=== PATIENT | male | born 1950 | race Caucasian/White ===

== ENCOUNTER 2017-09-04 14:46 | Emergency (ER) | payer OTHER ==
[~2017-09-04] VITALS: Ht 175.3 cm; Wt 96.0 kg
[~2017-09-04 14:46] MED LIST: CYCL10TA6 PO; GLC/500 PO; LPT/40 PO; MELO-84 PO; METH4PAK PO; METR0.754 TOP; MULT-220 PO; POLYSOL4 OPB; TRAM-453 PO; ZYBKIT PO
[2017-09-04 14:50] VITALS: TEMP 36.7; Ht 175.3 cm; Wt 96.0 kg
[2017-09-04] MEDS ORDERED: ASPI81TA28 PO (15:05)
[2017-09-04] MEDS ORDERED: SIMV40TA2 PO (15:05)
[2017-09-04] MEDS ORDERED: SODIUM CHLORIDE 0.9% 1000ML 1,000 ML IV STA (15:46)
[2017-09-04 16:05] LABS: BASO % 0.4 %; BASO ABS # 0.02 K/uL (0-0.2); EOS % 1.8 %; HEMATOCRIT 39.3 % (42-52); HEMOGLOBIN 13.8 g/dL (14.0-18.0); IG# 0.01 K/uL (0.00-0.02); LYMPH % 24.1 %; LYMPH ABS # 1.35 K/uL (1.2-3.4); MEAN CELL VOLUME 90.8 fL (80-100); MEAN CORPUSCULAR HEMOGLOBIN 31.9 pg (25-34); MEAN CORPUSCULAR HGB CONC 35.1 g/dl (32-36); MEAN PLATELET VOLUME 10.3 fL (7.4-10.4); MONO ABS # 0.39 K/uL (0.11-0.59); NEUT % 66.5 %; NEUT ABS # 3.73 K/uL (1.4-6.5); PLATELET COUNT 206 K/uL (130-400); RED CELL DISTRIBUTION WIDTH CV 12.6 % (11.5-14.5)
[2017-09-04 16:13] LABS: ALBUMIN 3.7 gm/dl (3.4-5.0); CALCIUM 8.8 mg/dl (8.5-10.1); CREATININE 0.68 mg/dl (0.60-1.40); POTASSIUM 3.9 mmol/L (3.5-5.1)
[2017-09-04 16:16] LABS: TOTAL PROTEIN 7.3 gm/dl (6.4-8.2)
--- NOTE | 2017-09-04 17:15 | DIAGNOSTIC IMAGING REPORT ---
ABD/PELVIS WITHOUT FOR STONE HISTORY: 66 years-old Male EVALUATE FLANK PAIN/HEMATURIA acute bilateral flank pain with hematuria COMPARISON: CT abdomen and pelvis 12/25/2014 TECHNIQUE: Multiple axial CT images of the abdomen and pelvis were obtained without the use of IV contrast. A dose lowering technique was used consistent with the principals of FRANCIA. FINDINGS: Mild dependent subsegmental bibasilar atelectasis. No pneumatosis or pneumoperitoneum identified. The imaged inferior cardiac chambers are unremarkable. Gallbladder is mildly contracted. Hepatic steatosis. 5 mm low attenuating lesion of the left hepatic lobe is unchanged and too small to characterize however suggests benign etiology such as a hepatic cyst. The spleen, pancreas and adrenal glands are within normal limits. Kidneys and ureters are within normal limits. No nephrolithiasis, ureteral calculi or obstructive uropathy identified. Mild distention of the bladder. Prostate is mildly prominent in size with central coarse parenchymal calcifications. Moderate atherosclerosis of the aorta without aneurysm. Mild dilation of the bilateral common iliac arteries measuring up to 1.8 cm transversely. There is no pathologic adenopathy identified. No bowel obstruction or focal bowel wall thickening identified. Cecum is again noted in a somewhat medial location. No evidence of acute appendicitis. Moderate stool volume of the right hemicolon. No mesenteric inflammatory changes or ascites. Soft tissues are within normal limits. Severe facet arthrosis of the mid and lower lumbar spine. Prominent subcortical cystic changes about the right acetabulum. IMPRESSION: 1. No acute intra-abdominal or intrapelvic abnormality identified, specifically no renal calculi or obstructive uropathy. 2. Hepatic steatosis. 3. Mild urinary bladder distention with prostamegaly. 4. No bowel obstruction or focal bowel wall thickening. The above report was generated using voice recognition software. It may contain grammatical, syntax or spelling errors. Electronically signed by: Zeb Dai M.D. 09/04/2017 5:13 PM Dictated Date/Time: 09/04/2017 5:06 PM
[2017-09-04 18:10] VITALS: BP 152/91; PULSE 66; O2SAT 97
--- NOTE | 2017-09-04 18:30 | EMERGENCY ROOM VISIT NOTE ---
ED Visit Note First contact with patient: 15:01 I reviewed the patient's past medical history, medications, and visit nursing notes. I discussed the case with the physician review assistant, examined the patient, and agree with the findings and plan as documented in the physician assistants note.
--- NOTE | 2017-09-05 21:48 | EMERGENCY ROOM VISIT NOTE ---
ED Visit Note First contact with patient: 15:01 Chief Complaint: Right sided back pain. History of Present Illness: Mr. Santana is a 66-year-old white male who ambulates into the ED accompanied by his complaining of right lower back pain. Historically patient denies any significant gastrointestinal. 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 Patient reports approximately 4-5 hours ago he started develop an achy sensation in the right side of the thoracic back. He reports initially it was mild and then gradually increased in intensity and became sharp. His pain has been as coming in waves. He places his discomfort in the area of the right flank with radiation into the right upper quadrant. He rates his discomfort 10/ 10 in triage but since coming back to the ED he is pain free. He has not identified any aggravating or alleviating factors related to the pain. He has not taken any medication for pain prior to arrival at the hospital. Proceed with his pain he reports he has been nauseated and has had some dry heaving but no jarrett vomiting, but has been brought back to the emergency department he has had resolution of nausea and heaving. He denies fevers, chills, sweats, skin eruptions, skin color changes, upper respiratory tract symptoms, cough, wheezing, shortness of breath, chest pain, urinary symptoms, hematuria, genital paresthesias, bowel and bladder dysfunction , lower extremity weakness/numbness/tingling. Review of Systems: As noted above in history of present illness. All body systems were reviewed and found to be negative as noted above. Past Medical History: Diabetes, unspecified skin disorder, osteoarthritis. Current Medications: Glucophage, Zyban, aspirin, Zocor. Allergies to Medications: Patient denies. Social History: Patient is not employed; he lives with his and feels safe in his home environment; he admits to tobacco and alcohol use. Physical Examination: Vital Signs: Date Time Temp Pulse Resp B/P (MAP) Pulse Ox O2 Delivery O2 Flow Rate FiO2 09/04/17 18:10 66 18 152/91 97 09/04/17 17:18 67 21 148/90 97 Room Air 09/04/17 16:00 67 16 144/81 95 Room Air 09/04/17 15:31 133/90 09/04/17 15:16 70 22 95 Room Air 09/04/17 15:11 72 09/04/17 15:01 135/91 09/04/17 14:50 36.7 74 20 157/82 95 Room Air GENERAL: 66-year-old male in mild to moderate distress due to pain, nontoxic- appearing, afebrile and hemodynamically stable. NEUROLOGICAL: Awake, alert and oriented to person, place and time. Answering questions appropriately and following commands. Normal gait. Good hand eye coordination. SKIN: Warm, dry and pink. No soft tissue eruptions or trauma noted. HEENT: Atraumatic and normocephalic. BACK: No tenderness over the bony thoracic or lumbar spine. No tenderness throughout the paraspinous muscles. Mild right-sided CVA tenderness. THORAX: Lungs sounds are clear to auscultation and equal bilaterally with symmetrical chest wall. ABDOMEN: Soft with mild tenderness in the right upper quadrant. Positive bowel sounds in all quadrants. No guarding, rigidity or organomegaly. EXTREMITIES: Moves all extremities well on command and with purpose. All distal neurovascular statuses are intact and equal bilaterally. No calf tenderness or cords. ED Course: Patient is assessed as noted above. Patient's medication list was reviewed. Laboratory Testing: Test 09/04/17 14:57 09/04/17 17:54 Range/Units White Blood Count 5.60 4.8-10.8 K/uL Red Blood Count 4.33 4.7-6.1 M/uL Hemoglobin 13.8 14.0-18.0 g/dL Hematocrit 39.3 42-52 % Mean Corpuscular Volume 90.8 80-100 fL Mean Corpuscular Hemoglobin 31.9 25-34 pg Mean Corpuscular Hemoglobin Concent 35.1 32-36 g/dl Platelet Count 206 130-400 K/uL Mean Platelet Volume 10.3 7.4-10.4 fL Neutrophils (%) (Auto) 66.5 % Lymphocytes (%) (Auto) 24.1 % Monocytes (%) (Auto) 7.0 % Eosinophils (%) (Auto) 1.8 % Basophils (%) (Auto) 0.4 % Neutrophils # (Auto) 3.73 1.4-6.5 K/uL Lymphocytes # (Auto) 1.35 1.2-3.4 K/uL Monocytes # (Auto) 0.39 0.11-0.59 K/uL Eosinophils # (Auto) 0.10 0-0.5 K/uL Basophils # (Auto) 0.02 0-0.2 K/uL RDW Standard Deviation 42.0 36.4-46.3 fL RDW Coefficient of Variation 12.6 11.5-14.5 % Immature Granulocyte % (Auto) 0.2 % Immature Granulocyte # (Auto) 0.01 0.00-0.02 K/uL Sodium Level 137 136-145 mmol/L Potassium Level 3.9 3.5-5.1 mmol/L Chloride Level 107 98-107 mmol/L Carbon Dioxide Level 23 21-32 mmol/L Anion Gap 7.0 3-11 mmol/L Blood Urea Nitrogen 16 7-18 mg/dl Creatinine 0.68 0.60-1.40 mg/dl Est Creatinine Clear Calc Drug Dose 120.5 ml/min Estimated GFR () 114.5 Estimated GFR (Non- 98.8 BUN/Creatinine Ratio 23.6 10-20 Random Glucose 124 70-99 mg/dl Calcium Level 8.8 8.5-10.1 mg/dl Total Bilirubin 0.4 0.2-1 mg/dl Direct Bilirubin 0.1 0-0.2 mg/dl Aspartate Amino Transf (AST/SGOT) 22 15-37 U/L Alanine Aminotransferase (ALT/SGPT) 30 12-78 U/L Alkaline Phosphatase 92 45-117 U/L Total Protein 7.3 6.4-8.2 gm/dl Albumin 3.7 3.4-5.0 gm/dl Lipase 109 73-393 U/L Urine Color YELLOW Urine Appearance CLEAR CLEAR Urine pH 5.5 4.5-7.5 Urine Specific [place] 1.023 1.000-1.030 Urine Protein NEG NEG Urine Glucose (UA) NEG NEG Urine Ketones NEG NEG Urine Occult Blood TRACE NEG Urine Nitrite NEG NEG Urine Bilirubin NEG NEG Urine Urobilinogen NEG NEG Urine Leukocyte Esterase NEG NEG Urine WBC (Auto) 0 0-5 /hpf Urine RBC (Auto) 0-4 0-4 /hpf Urine Hyaline Casts (Auto) 0 0-5 /lpf Urine Epithelial Cells (Auto) 0-5 0-5 /lpf Urine Bacteria (Auto) NEG NEG Noncontrast Abdominal/Pelvic CT: Was reviewed by myself and read by the radiologist showing no acute intra-abdominal or intrapelvic abnormalities, no renal calculi or obstructive uropathy, hepatic steatosis, mild urinary bladder distention with prostrate prostatomegaly, no bowel obstruction or focal bowel wall thickening. Patient was hydrated with normal saline. He refused pain and antinausea medications. Patient was reassessed multiple times during his stay in the emergency department and he had no return of pain or nausea. Patient's case was reviewed with Dr. Gross; he independently assessed the patient we agreed on diagnostic approach, treatment, disposition and plan. Clinical Impression: Acute right flank pain. Decision-Making: Initially my differential diagnosis I considered ureter calculus, pyelonephritis, acute cholecystitis, pancreatitis, hepatitis, constipation, bowel obstruction, testicular torsion and other causes. Disposition: Patient discharged home in stable condition accompanied by his ; prior to departure he was reassessed and subjectively reported he was still pain and symptom-free. Plan: Patient was encouraged to continue his current prescribed medications. Patient was encouraged alternate ibuprofen and acetaminophen every 3 hours as needed for pain. Patient was encouraged to stay well-hydrated with increased clear fluids. Patient was encouraged to follow-up with his primary care provider for recheck in 2-4 days. Patient was encouraged to return the ED for worsening pain, bloody urine, fevers , vomiting or any new/concerning symptoms.
== END 2017-09-04 18:10 | disposition home or self-care (01) ==
LOC: EDBD 14:46 → C.EDC 14:47
DX: R10.9 Unspecified abdominal pain (principal); E11.9 Type 2 diabetes mellitus without complications; M19.90 Unspecified osteoarthritis, unspecified site; Z79.899 Other long term (current) drug therapy; Z79.82 Long term (current) use of aspirin; Z72.0 Tobacco use

== ENCOUNTER 2017-09-29 12:36 | Emergency (ER) | payer OTHER ==
[~2017-09-29] VITALS: Ht 175.3 cm; Wt 92.0 kg
[2017-09-29] MEDS ORDERED: GLC/500 PO (12:38)
[2017-09-29] MEDS ORDERED: ZYBKIT PO (12:38)
[2017-09-29 12:40] VITALS: TEMP 36.7; Ht 175.3 cm; Wt 92.0 kg
[2017-09-29] MEDS ORDERED: KETOROLAC TROMETHAMINE 30 MG/ML VIAL IV STA (13:25)
[2017-09-29 13:38] LABS: BASO % 0.4 %; BASO ABS # 0.02 K/uL (0-0.2); EOS % 2.9 %; EOS ABS # 0.14 K/uL (0-0.5); HEMATOCRIT 41.3 % (42-52); HEMOGLOBIN 14.3 g/dL (14.0-18.0); IG# 0.01 K/uL (0.00-0.02); LYMPH % 29.9 %; LYMPH ABS # 1.42 K/uL (1.2-3.4); MEAN CELL VOLUME 90.4 fL (80-100); MEAN CORPUSCULAR HEMOGLOBIN 31.3 pg (25-34); MEAN CORPUSCULAR HGB CONC 34.6 g/dl (32-36); MEAN PLATELET VOLUME 9.5 fL (7.4-10.4); MONO % 7.4 %; MONO ABS # 0.35 K/uL (0.11-0.59); NEUT % 59.2 %; NEUT ABS # 2.81 K/uL (1.4-6.5); PLATELET COUNT 197 K/uL (130-400); RED CELL DISTRIBUTION WIDTH CV 12.6 % (11.5-14.5); RED CELL DISTRIBUTION WIDTH SD 41.5 fL (36.4-46.3); WHITE BLOOD COUNT 4.75 K/uL (4.8-10.8)
[2017-09-29 13:46] LABS: ALBUMIN 3.9 gm/dl (3.4-5.0); CALCIUM 8.8 mg/dl (8.5-10.1); CREATININE 0.61 mg/dl (0.60-1.40); POTASSIUM 3.9 mmol/L (3.5-5.1)
[2017-09-29 13:49] LABS: TOTAL PROTEIN 7.1 gm/dl (6.4-8.2)
[2017-09-29] MEDS ORDERED: SIMV40TA2 PO (15:05)
[2017-09-29] MEDS ORDERED: ASPI81TA28 PO (15:05)
--- NOTE | 2017-09-29 15:08 | DIAGNOSTIC IMAGING REPORT ---
MRI LUMBAR SPINE W/O CONTRAST CLINICAL HISTORY: Severe low back pain. TECHNIQUE: Sagittal and axial T1, T2 and STIR images were obtained. COMPARISON STUDY: No previous studies for comparison. OBSERVATIONS: The vertebral bodies and posterior elements appear intact. There is no abnormal bony signal present to suggest a marrow replacement process. L1-2: There is a small right foraminal disc protrusion with mild subforaminal narrowing. There is no significant spinal stenosis L2-3: There is a mild circumferential disc bulge. There is a right foraminal disc osteophyte complex with minimal subforaminal narrowing L3-4: There is a circumferential disc bulge with minimal spinal canal narrowing. There is facet joint arthropathy. There is no significant foraminal narrowing L4-5: There is a minor asymmetric to right disc bulge. There is no significant spinal or foraminal stenosis L5-S1: No disc protrusions or extrusions. No evidence of spinal canal or neural foraminal compromise. The conus medullaris and cauda equina appear normal. IMPRESSION: 1. Mild multilevel spondylitic changes. There is a small right foraminal disc protrusion at the L1-2 level. There is a small right foraminal disc osteophyte complex at the L2-3 level with mild subforaminal narrowing. There is a circumferential disc bulge with mild spinal canal narrowing at the L3-4 level. Electronically signed by: Kavon Simms M.D. 09/29/2017 3:06 PM Dictated Date/Time: 09/29/2017 3:00 PM
--- NOTE | 2017-09-29 16:18 | EMERGENCY ROOM VISIT NOTE ---
History Report prepared by Deisi: Carlos Garcia Under the Supervision of: Dr. Jose Elias Wesley M.D. First contact with patient: 13:19 Chief Complaint: FLANK PAIN Stated Complaint: BACK PAIN RADIATING TO LOWER ABDOMEN History of Present Illness The patient is a 66 year old male who presents to the Emergency Room with complaints of worsening right flank pain beginning last night. His pain wraps around into his abdomen. The patient rates his pain as a 4/10 in severity. He also complains of decreased urinary output and nausea. The patient denies numbness, weakness, vomiting or fevers. He notes that he was seen in the ED two weeks ago for similar symptoms and had a negative CT. His pain is not as severe as it was at his previous visit. Source of History: patient Onset: Last night Position: other (right flank) Symptom Intensity: 4/10 Timing: worsening Associated Symptoms: + nausea, + abdominal pain, + urinary symptoms ( decreased output), No fevers, No vomiting, No weakness, No numbness Review of Systems See HPI for pertinent positives & negatives. A total of 10 systems reviewed and were otherwise negative. Past Medical & Surgical Medical Problems: (1) Herniated disc Old medical records were reviewed. Nurse's notes were reviewed and I agree with. Family History No significant family history Social History Smoking Status: Current Every Day Smoker Marital Status: Housing Status: lives with family Current/Historical Medications Scheduled Aspirin (Aspirin Ec), 81 MG PO DAILY Bupropion Hcl (Smoking [place] (Zyban), 150 MG PO DAILY Metformin Hcl (Glucophage), 500 MG PO BIDM Simvastatin (Zocor), 40 MG PO QPM Allergies Coded Allergies: No Known Allergies (Unverified , 12/25/14) Physical Exam Vital Signs Date Time Temp Pulse Resp B/P (MAP) Pulse Ox O2 Delivery O2 Flow Rate FiO2 09/29/17 14:07 62 16 141/88 96 Room Air 09/29/17 12:40 36.7 70 16 165/102 94 Room Air Physical Exam General: Non-ill appearing middle-aged male in no acute distress. HEENT: Normal cephalic atraumatic. Pupils are equal round and reactive to light. Extraocular movements are intact. Oropharynx is pink with moist mucous membranes. No swelling of the mouth lips or tongue. Neck: Supple with a midline trachea. No meningeal signs or stiffness, no JVD or bruits. No Stridor. Chest: Clear to auscultation bilaterally. No wheezes or rhonchi. No increased work of breathing. Heart: regular rate and rhythm. Abdomen: Soft nontender, nondistended without rebound guarding or rigidity. Extremities: No cyanosis clubbing or edema. No calf tenderness or assymetry Spine/Back. Non tender to palpation. Right flank is mildly tender to palpation and exacerbated with any movements. Skin: Good turgor without rashes. Neurologic exam: Cranial nerves two through 12 are intact. Motor and sensation are intact and symmetrical throughout. Medical Decision & Procedures ER Provider Diagnostic Interpretation: Radiology results as stated below per my review and radiologist interpretation: MRI LUMBAR SPINE W/O CONTRAST OBSERVATIONS: The vertebral bodies and posterior elements appear intact. There is no abnormal bony signal present to suggest a marrow replacement process. L1-2: There is a small right foraminal disc protrusion with mild subforaminal narrowing. There is no significant spinal stenosis L2-3: There is a mild circumferential disc bulge. There is a right foraminal disc osteophyte complex with minimal subforaminal narrowing L3-4: There is a circumferential disc bulge with minimal spinal canal narrowing. There is facet joint arthropathy. There is no significant foraminal narrowing L4-5: There is a minor asymmetric to right disc bulge. There is no significant spinal or foraminal stenosis L5-S1: No disc protrusions or extrusions. No evidence of spinal canal or neural foraminal compromise. The conus medullaris and cauda equina appear normal. IMPRESSION: 1. Mild multilevel spondylitic changes. There is a small right foraminal disc protrusion at the L1-2 level. There is a small right foraminal disc osteophyte complex at the L2-3 level with mild subforaminal narrowing. There is a circumferential disc bulge with mild spinal canal narrowing at the L3-4 level. Electronically signed by: Kavon Simms M.D. 09/29/2017 3:06 PM Laboratory Results 09/29/17 13:19 Red Blood Count 4.57, Mean Corpuscular Volume 90.4, Mean Corpuscular Hemoglobin 31.3, Mean Corpuscular Hemoglobin Concent 34.6, Mean Platelet Volume 9.5, Neutrophils (%) (Auto) 59.2, Lymphocytes (%) (Auto) 29.9, Monocytes (%) (Auto) 7.4, Eosinophils (%) (Auto) 2.9, Basophils (%) (Auto) 0.4, Neutrophils # (Auto) 2.81, Lymphocytes # (Auto) 1.42, Monocytes # (Auto) 0.35, Eosinophils # (Auto) 0.14, Basophils # (Auto) 0.02 09/29/17 13:19 Test 09/29/17 13:19 09/29/17 13:31 White Blood Count 4.75 K/uL (4.8-10.8) Red Blood Count 4.57 M/uL (4.7-6.1) Hemoglobin 14.3 g/dL (14.0-18.0) Hematocrit 41.3 % (42-52) Mean Corpuscular Volume 90.4 fL (80-100) Mean Corpuscular Hemoglobin 31.3 pg (25-34) Mean Corpuscular Hemoglobin Concent 34.6 g/dl (32-36) Platelet Count 197 K/uL (130-400) Mean Platelet Volume 9.5 fL (7.4-10.4) Neutrophils (%) (Auto) 59.2 % Lymphocytes (%) (Auto) 29.9 % Monocytes (%) (Auto) 7.4 % Eosinophils (%) (Auto) 2.9 % Basophils (%) (Auto) 0.4 % Neutrophils # (Auto) 2.81 K/uL (1.4-6.5) Lymphocytes # (Auto) 1.42 K/uL (1.2-3.4) Monocytes # (Auto) 0.35 K/uL (0.11-0.59) Eosinophils # (Auto) 0.14 K/uL (0-0.5) Basophils # (Auto) 0.02 K/uL (0-0.2) RDW Standard Deviation 41.5 fL (36.4-46.3) RDW Coefficient of Variation 12.6 % (11.5-14.5) Immature Granulocyte % (Auto) 0.2 % Immature Granulocyte # (Auto) 0.01 K/uL (0.00-0.02) Anion Gap 8.0 mmol/L (3-11) Est Creatinine Clear Calc Drug Dose 131.7 ml/min Estimated GFR () 119.8 Estimated GFR (Non- 103.3 BUN/Creatinine Ratio 18.2 (10-20) Calcium Level 8.8 mg/dl (8.5-10.1) Total Bilirubin 0.6 mg/dl (0.2-1) Direct Bilirubin 0.1 mg/dl (0-0.2) Aspartate Amino Transf (AST/SGOT) 23 U/L (15-37) Alanine Aminotransferase (ALT/SGPT) 37 U/L (12-78) Alkaline Phosphatase 86 U/L (45-117) Total Protein 7.1 gm/dl (6.4-8.2) Albumin 3.9 gm/dl (3.4-5.0) Lipase 138 U/L (73-393) Urine Color YELLOW Urine Appearance CLEAR (CLEAR) Urine pH 6.5 (4.5-7.5) Urine Specific [place] 1.016 (1.000-1.030) Urine Protein NEG (NEG) Urine Glucose (UA) NEG (NEG) Urine Ketones NEG (NEG) Urine Occult Blood NEG (NEG) Urine Nitrite NEG (NEG) Urine Bilirubin NEG (NEG) Urine Urobilinogen NEG (NEG) Urine Leukocyte Esterase NEG (NEG) Laboratory studies as stated above per my review. Medications Administered Medications (Trade) Dose Ordered Sig/Candis Route Start Time Stop Time Status Last Admin Dose Admin Ketorolac Tromethamine (Toradol Inj) 30 mg NOW STAT IV 09/29/17 13:25 09/29/17 13:28 DC 09/29/17 13:37 30 MG ED Course 1321: Past medical records reviewed. The patient was evaluated in room B9, and a complete history and physical examination were performed. 1325: Ordered Toradol Inj 30 mg IV. 1604: Upon reevaluation, the patient is resting comfortably. I discussed the results and treatment plan with him. He verbalized agreement of the treatment plan. The patient was discharged home. Medical Decision Differentials include, but are not limited to; musculoskeletal pain, disc disease, kidney stone, infection, and electrolyte or metabolic abnormality. This patient comes in as described above. He was placed in room B9. He is having back pain in the right flank radiating around to the front at times is exacerbated when he moves particularly says he is a hard time bending over to tie his shoes. No trauma although he was doing a lot of lifting. He was seen about 2 weeks ago with similar complaints although is worse at the time is workup for kidney stones and had a CAT scan which shows no stones. There is no other significant pathology seen on the CAT scan and there is no evidence of abdominal aneurysm. He has no urinary symptoms. He has no neurologic deficits. I did do an MRI of his back today he does have some disc disease and degenerative changes could potentially be causing symptoms I think is more likely spasms. He has no evidence to suggest cauda equina syndrome. IV access was established and he was given IV Toradol. He has no white count or fever to suggest infection. He has no significant anemia. He is feeling better would like to home. I will discharge him to home. For pain, he can use an anti- inflammatory such as ibuprofen 600 mg every 6 hours take with food. He was happy with the plan and discharged home. He should return if :increasing pain, worsening of symptoms, numbness weakness, change in bowel or bladder function, any new problems or concerns. Medication Reconcilliation Current Medication List: was personally reviewed by me Blood Pressure Screening Patient's blood pressure: Elevated blood pressure Blood pressure disposition: Referred to PCP Impression Primary Impression: Right flank pain Additional Impression: Lumbar disc disease Scribe Attestation The scribe's documentation has been prepared under my direction and personally reviewed by me in its entirety. I confirm that the note above accurately reflects all work, treatment, procedures, and medical decision making performed by me. Departure Information Dispostion Home / Self-Care Referrals Vidya Lewis M.D. (PCP) Forms HOME CARE DOCUMENTATION FORM, IMPORTANT VISIT INFORMATION Patient Instructions My [facility] Additional Instructions Rest. Drink plenty of fluids. Return if: Increasing pain, worsening of symptoms, numbness or weakness, fever or chills, any new problems or concerns Use ibuprofen 400 mg every 6 hours if needed for pain May also use acetaminophen or Tylenol a maximum of 2 pills every 6 hours as needed Follow-up with your doctor later this week for recheck Problem Qualifiers
[2017-09-29 16:55] VITALS: BP 127/84; PULSE 61; O2SAT 96
--- NOTE | 2017-10-01 17:56 | Pharmacy Progress Note ---
ED Pharmacist Culture FollowUp Date of Service: Oct 01, 2017. Corynbact sp. at low CFU/mL isolated from urine culture. Isolation does not always mean infection. Recent CT w/o kidney stone. UA without abnormality. No intervention required. Case discussed w Dr. Ariza.
== END 2017-09-29 14:55 | disposition home or self-care (01) ==
LOC: C.EDB 12:38
DX: R10.9 Unspecified abdominal pain (principal); R11.0 Nausea; M51.26 Other intervertebral disc displacement, lumbar region; F17.210 Nicotine dependence, cigarettes, uncomplicated